=== PATIENT | male | born 1960 | race Caucasian/White ===

== ENCOUNTER 2019-10-02 20:05 | Emergency (ER) | payer BC, SELFPAY ==
[~2019-10-02] VITALS: Ht 190.5 cm; Wt 111.6 kg
[~2019-10-02 20:05] MED LIST: motrin PO; tylenol PO
[2019-10-02 20:49] LABS: BASO % 0.4 % (0.0-1.0); EOS # 0.4 10^3/uL (0.0-0.5); EOS % 5.1 % (0.0-3.0); HEMOGLOBIN 11.4 g/dl (13.5-17.5); LYMPH # 1.9 10^3/uL (1.5-5.0); LYMPH % 27.3 % (24.0-44.0); MEAN CORPUSCULAR HEMOGLOBIN 26.7 pg (27.0-33.0); MEAN CORPUSCULAR HGB CONC 32.6 g/dl (32.0-36.5); MONO # 0.8 10^3/uL (0.0-0.8); MONO % 10.8 % (0.0-5.0); NEUTROPHILS # 3.9 10^3/uL (1.5-8.5); NEUTROPHILS % 55.5 % (36.0-66.0); PLATELET COUNT, AUTOMATED 320 10^3/uL (150-450); RED BLOOD COUNT 4.27 10^6/uL (4.30-6.10)
[2019-10-02 21:05] LABS: INR 0.94; PARTIAL THROMBOPLASTIN TIME 28.7 SECONDS (25.0-38.4); PROTHROMBIN TIME 12.3 SECONDS (11.8-14.0)
[2019-10-02 21:14] LABS: ERYTHROCYTE SEDIMENTATION RATE 26 mm/hr (0-20)
[2019-10-02 21:20] LABS: ALBUMIN 3.3 GM/DL (3.2-5.2); BILIRUBIN,DIRECT 0.2 MG/DL (0.0-0.2); BILIRUBIN,TOTAL 0.8 MG/DL (0.2-1.0); C REACTIVE PROTEIN QUANTITATIV 3.98 MG/DL (0.00-0.30); TOTAL PROTEIN 6.8 GM/DL (6.4-8.2)
--- NOTE | 2019-10-02 21:22 | REPVR ---
PROCEDURE INFORMATION: Exam: US Duplex Right Lower Extremity Veins, Limited Exam date and time: 10/02/2019 9:10 PM Age: 59 years old Clinical indication: Edema, localized; Lower extremity, right; Additional info: Swelling, R/O dvt TECHNIQUE: Imaging protocol: Real-time Duplex ultrasound of the Right Lower Extremity with 2-D harris scale, color Doppler flow and spectral waveform analysis with image documentation. Limited exam was focused on the right lower extremity veins. COMPARISON: US Duplex, Ext,LOWER veins,unilat 09/06/2013 3:58 PM FINDINGS: Right deep veins: Unremarkable. The common femoral, femoral, proximal profunda femoral and popliteal veins are patent without thrombus. Normal Doppler waveforms. Normal compressibility and/or augmentation response. Right superficial veins: Unremarkable. Saphenofemoral junction is patent without thrombus. Soft tissues: Unremarkable. IMPRESSION: No evidence of DVT. Electronically signed by: Murtaza White On 10/02/2019 21:21:35 PM
[2019-10-02 22:08] VITALS: BP 128/66
--- NOTE | 2019-10-03 03:13 | REP ---
Clinical: Trauma. Technique: AP and frog lateral views of the right femur. Findings: Generalized age-related changes to the right hip. No acute fracture or dislocation. Surrounding soft tissues are unremarkable. Impression: No acute fracture or dislocation. Electronically Signed by Wilfrid Sanches MD 10/03/2019 03:04 A
== END 2019-10-02 22:08 | disposition home or self-care (01) ==
LOC: M ED 20:05
DX: S70.11XA Contusion of right thigh, initial encounter (principal); M79.89 Other specified soft tissue disorders; W55.22XA Struck by cow, initial encounter; Y92.71 Barn as the place of occurrence of the external cause; Y93.K9 Activity, other involving animal care; Y99.8 Other external cause status

== ENCOUNTER → 2022-07-08 | Outpatient (REF) | payer BC | LOC: M LAB REF 17:04 | PROVIDERS: ATTEND Podiatrist | DX: M79.671 Pain in right foot (principal) ==

== ENCOUNTER 2022-10-05 23:09 | Emergency (ER) | payer BC ==
[~2022-10-05] VITALS: Ht 190.5 cm; Wt 97.7 kg
[2022-10-05 23:14] VITALS: BP 131/91
[2022-10-06 00:14] LABS: BASO % 0.5 % (0.0-1.0); EOS # 0.2 10^3/uL (0.0-0.5); EOS % 2.7 % (0.0-3.0); HEMATOCRIT 44.6 % (42.0-52.0); HEMOGLOBIN 14.4 g/dl (13.5-17.5); LYMPH % 33.7 % (24.0-44.0); MEAN CORPUSCULAR HEMOGLOBIN 26.2 pg (27.0-33.0); MEAN CORPUSCULAR HGB CONC 32.3 g/dl (32.0-36.5); MEAN CORPUSCULAR VOLUME 81.1 fl (80.0-96.0); MONO # 0.5 10^3/uL (0.0-0.8); MONO % 7.9 % (2.0-8.0); NEUTROPHILS # 3.3 10^3/uL (1.5-8.5); NEUTROPHILS % 54.9 % (36.0-66.0); PLATELET COUNT, AUTOMATED 285 10^3/uL (150-450); WHITE BLOOD COUNT 5.9 10^3/uL (4.0-10.0)
[2022-10-06] MEDS: GASTROGRAFIN SOLUTION 30ML PO SCH ×2 (00:16→00:46)
[2022-10-06 00:35] LABS: BLOOD UREA NITROGEN 20 MG/DL (9-23); CARBON DIOXIDE LEVEL 27 MMOL/L (20-31); CHLORIDE LEVEL 108 MMOL/L (98-107); CREATININE FOR GFR 0.98 MG/DL (0.70-1.30); GLOMERULAR FILTRATION RATE > 60.0 (>49); GLUCOSE, FASTING 103 MG/DL (74-106); POTASSIUM SERUM 4.7 MMOL/L (3.5-5.1); SODIUM LEVEL 142 MMOL/L (136-145)
[2022-10-06] MEDS ORDERED: ISOVUE-370 76% 100ML VIAL As Ordered ONE (01:49)
== END 2022-10-06 04:42 | disposition home or self-care (01) ==
LOC: M ED 23:09
DX: K40.90 Unilateral inguinal hernia, without obstruction or gangrene, not specified as recurrent (principal); K57.30 Diverticulosis of large intestine without perforation or abscess without bleeding; N28.1 Cyst of kidney, acquired
CPT/HCPCS: 74177; 80048; 83605; 85025; 99283; Q9963; Q9967

== ENCOUNTER 2022-10-25 21:05 | Emergency (ER) | payer BC ==
[~2022-10-25] VITALS: Ht 190.5 cm; Wt 98.2 kg
[2022-10-26] MEDS ORDERED: KETO10TAB PO (01:54)
[2022-10-26 02:00] VITALS: BP 148/78
== END 2022-10-26 02:06 | disposition home or self-care (01) ==
LOC: M ED 21:05
DX: K40.90 Unilateral inguinal hernia, without obstruction or gangrene, not specified as recurrent (principal)

== ENCOUNTER 2023-03-21 07:47 | Day surgery (SDC) | payer BC ==
[~2023-03-21] VITALS: Ht 190.5 cm; Wt 108.4 kg
[~2023-03-21 07:47] MED LIST changes: +KETO10TAB PO; +UNRESOLVED CLARIFICATION ENTRY XX SCH; +ceFAZolin SOD 2 GM in IV 1 EA IV ONE
[2023-03-21] MEDS ORDERED: LR 1,000 ML IV SCH (08:00)
[2023-03-21] MEDS ORDERED: ceFAZolin SOD 2 GM in IV 1 EA IV ONE (09:10)
[2023-03-21] MEDS ORDERED: ROCURONIUM BROMIDE 50MG/5ML VIAL As Ordered ONE ×2 (09:49→09:51)
[2023-03-21] MEDS ORDERED: ACETAMINOPHEN 1000MG 100ML IV BAG As Ordered ONE (09:49)
[2023-03-21] MEDS ORDERED: ONDANSETRON 4MG 2ML VIAL As Ordered ONE (09:49)
[2023-03-21] MEDS ORDERED: fentaNYL 250 MCG/5 ML INJECTION As Ordered ONE (09:49)
[2023-03-21] MEDS ORDERED: LIDOCAINE 2% 100MG/5ML SDV (FOR ANES.) As Ordered ONE (09:49)
[2023-03-21] MEDS ORDERED: METOCLOPRAMIDE INJ 10MG/2ML VIAL As Ordered ONE (09:49)
[2023-03-21] MEDS ORDERED: SUGAMMADEX SODIUM 500 MG/5 ML VIAL (BRIDION) As Ordered ONE (09:49)
[2023-03-21] MEDS ORDERED: MIDAZOLAM INJ 2MG/2ML VIAL As Ordered ONE (09:49)
[2023-03-21] MEDS ORDERED: propofoL 200 MG/20 ML VIAL As Ordered ONE (09:49)
[2023-03-21] MEDS ORDERED: KETOROLAC 60MG 2ML VIAL As Ordered ONE (09:49)
[2023-03-21] MEDS ORDERED: ePHEDrine SULFATE 25 MG/5 ML(5MG/ML) SYRINGE As Ordered ONE (09:49)
[2023-03-21] MEDS ORDERED: oxyCODONE 5MG TAB PO PRN (10:50)
[2023-03-21] MEDS ORDERED: fentaNYL 100 MCG/2 ML INJECTION IV PRN (10:50)
[2023-03-21] MEDS ORDERED: ONDANSETRON 4MG 2ML VIAL IV PRN (10:50)
[2023-03-21 11:35] VITALS: BP 122/68; TEMP 97.8; O2SAT 94
[2023-03-21] MEDS ORDERED: NORCO, ANEXSIA 5/325MG TABLET (HYDROcodone/ACETAMINOPHEN) PO PRN (11:50)
== END 2023-03-21 12:10 | disposition home or self-care (01) ==
LOC: M SDC 07:47
PROVIDERS: ATTEND Surgery
DX: K40.90 Unilateral inguinal hernia, without obstruction or gangrene, not specified as recurrent (principal)
CPT/HCPCS: 49650; C1781; J0131; J0665; J0690; J1100; J1885; J2250; J2405; J2765; J3010; S2900

== ENCOUNTER 2024-06-21 05:08 | Inpatient (IN) | payer BC ==
[~2024-06-21] VITALS: Ht 190.5 cm; Wt 109.1 kg
[~2024-06-21 05:08] MED LIST changes: -UNRESOLVED CLARIFICATION ENTRY XX SCH; -ceFAZolin SOD 2 GM in IV 1 EA IV ONE
[2024-06-21] MEDS: MORPHINE 4 MG/ML 1ML VIAL IV PRN (08:33)
[2024-06-21] MEDS: ENOXAPARIN 40MG/0.4ML SYRINGE (J1650 PER 10MG) SC SCH (09:00)
[2024-06-21] MEDS ORDERED: HOME MED LIST COMPLETE! XX SCH (09:05)
[2024-06-21] MEDS: NS (Normal Saline) 0.9% 1,000 ML IV SCH (09:18)
[2024-06-21] MEDS ORDERED: oxyCODONE 5MG TAB PO PRN ×2 (12:50)
[2024-06-21] MEDS ORDERED: ONDANSETRON 4MG TAB PO PRN (12:50)
[2024-06-21] MEDS ORDERED: ACETAMINOPHEN 325 MG TAB PO PRN (12:50)
[2024-06-21 13:09] LABS: MEAN CORPUSCULAR HEMOGLOBIN 26.2 pg (27.0-33.0); MEAN CORPUSCULAR HGB CONC 32.5 g/dl (32.0-36.5); MEAN CORPUSCULAR VOLUME 80.6 fl (80.0-96.0); PLATELET COUNT, AUTOMATED 257 10^3/uL (150-450); RED BLOOD COUNT 4.96 10^6/uL (4.30-6.10); WHITE BLOOD COUNT 7.7 10^3/uL (4.0-10.0)
[2024-06-21] MEDS ORDERED: LIDOCAINE 2% 100MG/5ML SDV (FOR ANES.) As Ordered ONE (13:25)
[2024-06-21] MEDS ORDERED: ONDANSETRON 4MG 2ML VIAL As Ordered ONE (13:25)
[2024-06-21] MEDS ORDERED: propofoL 200 MG/20 ML VIAL As Ordered ONE (13:25)
[2024-06-21 13:42] LABS: ALBUMIN 3.5 G/DL (3.2-5.2); ALKALINE PHOSPHATASE 99 U/L (40-129); ALT/SGPT 26 U/L (7.0-40); AST/SGOT 19 U/L (<34); BLOOD UREA NITROGEN 17 MG/DL (9-23); CALCIUM LEVEL 8.5 MG/DL (8.3-10.6); CARBON DIOXIDE LEVEL 23 MMOL/L (20-31); CHLORIDE LEVEL 109 MMOL/L (98-107); CREATININE FOR GFR 0.91 MG/DL (0.70-1.30); GLOMERULAR FILTRATION RATE > 60.0 (>49); GLUCOSE, FASTING 115 MG/DL (74-106); POTASSIUM SERUM 4.4 MMOL/L (3.5-5.1); SODIUM LEVEL 141 MMOL/L (136-145); TOTAL PROTEIN 6.3 G/DL (5.7-8.2)
[2024-06-21 14:23] LABS: BASO % 0.3 % (0.0-1.0); EOS # 0.1 10^3/uL (0.0-0.5); LYMPH # 1.3 10^3/uL (1.5-5.0); LYMPH % 16.6 % (24.0-44.0); MONO # 0.8 10^3/uL (0.0-0.8); MONO % 10.4 % (2.0-8.0); NEUTROPHILS # 5.5 10^3/uL (1.5-8.5); NEUTROPHILS % 71.4 % (36.0-66.0)
[2024-06-21 15:20] LABS: INR 0.99; PARTIAL THROMBOPLASTIN TIME 28.2 SECONDS (24.8-34.2); PROTHROMBIN TIME 13.4 SECONDS (12.5-14.5)
[2024-06-21] MEDS ORDERED: ROCURONIUM BROMIDE 50MG/5ML VIAL As Ordered ONE (16:09)
[2024-06-21] MEDS ORDERED: ACETAMINOPHEN 1000MG/100ML IV BAG As Ordered ONE (16:09)
[2024-06-21] MEDS ORDERED: fentaNYL 250 MCG/5 ML INJECTION As Ordered ONE (16:10)
[2024-06-21] MEDS ORDERED: MIDAZOLAM INJ 2MG/2ML VIAL As Ordered ONE (16:11)
[2024-06-21] MEDS: ceFAZolin 2 GM/D5W 50 ML IV BAG As Ordered ONE (17:04)
[2024-06-21] MEDS ORDERED: SUGAMMADEX SODIUM 500 MG/5 ML VIAL (BRIDION) As Ordered ONE (17:27)
[2024-06-21] MEDS ORDERED: KETOROLAC 60MG 2ML VIAL As Ordered ONE (18:03)
[2024-06-21] MEDS ORDERED: MEPERIDINE 50 MG/ML 1ML VIAL As Ordered ONE (18:10)
[2024-06-21] MEDS ORDERED: fentaNYL 100 MCG/2 ML INJECTION IV PRN (18:10)
[2024-06-21] MEDS: LR 1,000 ML IV SCH (18:10)
[2024-06-21] MEDS: ONDANSETRON 4MG 2ML VIAL IV PRN (18:23)
[2024-06-21] MEDS: oxyCODONE 5MG TAB PO PRN (18:23)
[2024-06-21] MEDS: HYDROMORPHONE HCL 0.5 MG/ 0.5 ML SYRINGE IV PRN (18:24)
[2024-06-21] MEDS: METOCLOPRAMIDE INJ 10MG/2ML VIAL IV PRN (18:47)
[2024-06-21 19:30] VITALS: BP 131/71; TEMP 98.2; O2SAT 91
[2024-06-21 19:48] VITALS: BP 102/65; TEMP 98.1; O2SAT 92
[2024-06-21 20:05] VITALS: BP 132/71; TEMP 97.9; O2SAT 93
[2024-06-21] MEDS: SENOKOT S TAB PO SCH (21:08)
[2024-06-21 21:30] VITALS: BP 131/70; TEMP 97.5; O2SAT 94
[2024-06-22] VITALS: BP 132/75; TEMP 97.7; O2SAT 94
[2024-06-22] MEDS: ceFAZolin SOD 2 GM in IV 1 EA IV SCH (00:09)
[2024-06-22 03:25] VITALS: BP 128/75; TEMP 98.2; O2SAT 94
[2024-06-22 04:00] VITALS: O2SAT 94
[2024-06-22 06:13] LABS: HEMATOCRIT 39.1 % (42.0-52.0); HEMOGLOBIN 12.4 g/dl (13.5-17.5); MEAN CORPUSCULAR HEMOGLOBIN 26.3 pg (27.0-33.0); MEAN CORPUSCULAR HGB CONC 31.7 g/dl (32.0-36.5); MEAN CORPUSCULAR VOLUME 82.8 fl (80.0-96.0); PLATELET COUNT, AUTOMATED 242 10^3/uL (150-450); RED BLOOD COUNT 4.72 10^6/uL (4.30-6.10); WHITE BLOOD COUNT 7.2 10^3/uL (4.0-10.0)
[2024-06-22 08:00] VITALS: BP 130/66; TEMP 98.8; O2SAT 90
[2024-06-22 08:34] LABS: ALBUMIN 3.1 G/DL (3.2-5.2); ALKALINE PHOSPHATASE 93 U/L (40-129); ALT/SGPT 21 U/L (7.0-40); AST/SGOT 13 U/L (<34); BILIRUBIN,TOTAL 0.9 MG/DL (0.3-1.2); BLOOD UREA NITROGEN 20 MG/DL (9-23); CALCIUM LEVEL 8.2 MG/DL (8.3-10.6); CARBON DIOXIDE LEVEL 24 MMOL/L (20-31); CHLORIDE LEVEL 107 MMOL/L (98-107); CREATININE FOR GFR 1.09 MG/DL (0.70-1.30); GLOMERULAR FILTRATION RATE > 60.0 (>49); GLUCOSE, FASTING 124 MG/DL (74-106); POTASSIUM SERUM 5.1 MMOL/L (3.5-5.1); SODIUM LEVEL 140 MMOL/L (136-145)
[2024-06-22 12:00] VITALS: BP 127/65; TEMP 99.3; O2SAT 94
[2024-06-22] MEDS ORDERED: ACET32TAB PO (13:46)
[2024-06-22] MEDS ORDERED: SENN-52 PO (13:46)
[2024-06-22] MEDS ORDERED: METH-1164 PO (13:46)
[2024-06-22] MEDS ORDERED: ASPI81CH33 PO (13:48)
== END 2024-06-22 14:50 | disposition home or self-care (01) | DRG 308 ==
LOC: EDBD 05:08 → M ED 05:08 → M ED INP 05:09 → OBSVTOIN 13:02 → M MSPAV 19:30
PROVIDERS: ADMIT Student in an Organized Health Care Education/Training Program; ATTEND Student in an Organized Health Care Education/Training Program
PROC: 0QS734Z Reposition Left Upper Femur with Internal Fixation Device, Percutaneous Approach (ICD-10-PCS; principal; 2024-06-21 12:30)
DX: S72.002A Fracture of unspecified part of neck of left femur, initial encounter for closed fracture (principal); W19.XXXA Unspecified fall, initial encounter; Y92.9 Unspecified place or not applicable; Y93.9 Activity, unspecified

== ENCOUNTER → 2024-07-02 | Outpatient (CLI) | payer BC ==
[~2024-07-02] MED LIST changes: +ACET32TAB PO; +ASPI81CH33 PO; +METH-1164 PO; +SENN-52 PO
== END ==
LOC: M SOG 07:48
PROVIDERS: ATTEND Physician Assistant
DX: M25.552 Pain in left hip (principal)

== ENCOUNTER → 2024-08-07 | Outpatient (CLI) | payer BC | LOC: M SOG 07:56 | PROVIDERS: ATTEND Physician Assistant | DX: M25.552 Pain in left hip (principal); S72.002A Fracture of unspecified part of neck of left femur, initial encounter for closed fracture ==

== ENCOUNTER → 2024-09-06 | Outpatient (CLI) | payer BC | LOC: M SOG 07:16 | PROVIDERS: ATTEND Physician Assistant | DX: M25.552 Pain in left hip (principal); S72.002D Fracture of unspecified part of neck of left femur, subsequent encounter for closed fracture with routine healing ==

== ENCOUNTER → 2024-10-04 | Outpatient (CLI) | payer BC | LOC: M SOG 07:52 | PROVIDERS: ATTEND Physician Assistant | DX: M25.552 Pain in left hip (principal); S72.002A Fracture of unspecified part of neck of left femur, initial encounter for closed fracture ==

== ENCOUNTER → 2025-02-01 | Outpatient (CLI) | payer BC | LOC: M SOG 06:59 | PROVIDERS: ATTEND Physician Assistant | DX: M25.552 Pain in left hip (principal); S72.002A Fracture of unspecified part of neck of left femur, initial encounter for closed fracture; W18.30XA Fall on same level, unspecified, initial encounter; Y92.009 Unspecified place in unspecified non-institutional (private) residence as the place of occurrence of the external cause ==